=== PATIENT | female | born 2000 | race Caucasian/White ===

== ENCOUNTER → 2022-01-26 15:50 | Outpatient (CLI) | payer BC, SELFPAY ==
--- NOTE | ~2022-01-26 | US_ITS ---
EXAMINATION: US transvaginal DATE: 01/26/2022 16:25 INDICATION: Dysmenorrhea Comparison:No prior studies for comparison. TECHNIQUE: Multiple endovaginal sonographic images of the pelvis performed. FINDINGS: The uterus measures 6.4 x 3.3 x 3.9 cm. The endometrial complex measures 5 mm. The right ovary measures 3.6 x 2.3 x 3 cm and the left ovary measures 2.1 x 2 x 2.2 cm. There are sm all follicles in each ovary. Normal doppler signal in both ovaries. There is no free fluid in the pelvis. There are no abnormal masses seen on either side. IMPRESSION: 1. Normal pelvic ultrasound. Reviewed, dictated and finalized at location A.
== END ==
PROVIDERS: PCP Internal Medicine Endocrinology, Diabetes & Metabolism; Visit Provider Internal Medicine Endocrinology, Diabetes & Metabolism
DX: N94.6 Dysmenorrhea, unspecified (principal)
CPT/HCPCS: 76830

== ENCOUNTER 2022-05-05 05:52 | Emergency (ER) | payer BC, SELFPAY ==
[2022-05-05] VITALS (21 sets, daily range): BP systolic 102–127; BP diastolic 66–84; PULSE 61–89; RESP 14–18; TEMP 36.5; O2SAT 90–100
--- NOTE | ~2022-05-05 | CT_ITS ---
EXAMINATION: CT abdomen pelvis w con DATE: 05/05/2022 07:21 INDICATION: Abdominal pain TECHNIQUE: Computed tomography (CT) of the abdomen and pelvis was performed without intravenous contr ast. Automated exposure control and iterative reconstruction technique were employed. The dose-length product was 231.10 mGy-cm. COMPARISON: None FINDINGS: Lung bases are clear. Visualized inferior heart is unremarkable. No pericardial or pleural effusion. Liver, gallbladder, spleen, pancreas, bilateral adrenal glands and kidneys are normal. Bladder and an teverted uterus are normal. 1.5 cm right adnexal cyst/follicle. Moderate to large amount of stool sca ttered throughout the colon. No dilated bowel to suggest obstruction. The appendix is not definitivel y identified. No pericecal inflammatory stranding to suggest acute appendicitis. Minimal likely physi ologic free fluid in the deep pelvis. No abscess or free intraperitoneal gas. No pathologically enlar ged abdominal or pelvic lymphadenopathy. Bones are unremarkable. IMPRESSION: 1. Small amount of likely physiologic free fluid in the pelvis. No acute intra-abdominal/pelvic proce ss. Reviewed, dictated and finalized at location A. IMPRESSION: 1. Small amount of likely physiologic free fluid in the pelvis. No acute intra- abdominal/pelvic process.
--- NOTE | 2022-05-05 06:31 | ED.ABDPAIN ---
HPI - Abdominal Pain General Chief Complaint: Abdominal Pain Stated Complaint: abd pain Time Seen by Provider: 05/05/22 06:10 Source: RN notes reviewed History of Present Illness HPI narrative: Patient presents emergency department from home for abdominal pain. Patient states that pain is located in the epigastric region and is described as aching in nature states that it began approximately 8 hours ago she denies any fevers or chills nausea vomiting diarrhea chest pain shortness of breath or any other symptoms. States she took famotidine at home with minimal relief. She states she has had similar episodes of pain before in the past that she usually got shortly after her menstrual cycle that would happen approximately once a month but states she has not had that pain for a while Related Data Home Medications Medication Instructions Recorded Confirmed buspirone 05/05/22 famotidine 05/05/22 Allergies Allergy/AdvReac Type Severity Reaction Status Date / Time No Known Allergies Allergy Verified 05/05/22 06:00 Review of Systems Review of Systems: Gen.: Denies fevers or chills ENT: Denies congestion Respiratory: Denies shortness of breath or cough CV: Denies chest pain or palpitations GI: see HPI denies burning, urgency, frequency or hematuria Musculoskeletal: Denies back pain or muscle pain Neuro: Denies numbness, tingling, weakness or focal weakness Skin: Denies rash Except as documented, all other systems reviewed and negative PMFSH Past Medical History Medical History (Updated 05/05/22 @ 06:33 by Jose Maldonado DO) Patient denies significant medical history Social History Social History (Updated 05/05/22 @ 06:32 by Jose Maldonado DO) Smoking status: Never smoker Exam Narrative: APPEARANCE: No acute distress, nontoxic, resting in bed HEENT: Normocephalic, atraumatic, OMM RESPIRATORY: No respiratory distress, clear to auscultation bilaterally with no rhonchi wheezing or rales CARDIOVASCULAR: RRR s murmur ABDOMINAL: Soft nondistended tender palpation in epigastric and left upper quadrant no tenderness right upper quadrant, right lower quadrant and left lower quadrant no rebound or guarding MUSCULOSKELETAl: Moves all extremities. No clubbing, cyanosis or edema. NEURO: Awake and alert. Following commands, speech normal, no focal deficits SKIN:: Warm, dry. Normal Color PSYCHIATRIC: Normal affect/mood Course Vital Signs Vital signs: Vital Signs Temperature 97.7 F 05/05/22 05:56 Pulse Rate 89 05/05/22 05:56 Respiratory Rate 18 05/05/22 05:56 Blood Pressure 127/84 05/05/22 05:56 Pulse Oximetry 100 05/05/22 05:56 Oxygen Delivery Room Air 05/05/22 05:56 Temperature 97.7 F 05/05/22 05:56 Pulse Rate 61 05/05/22 06:09 Respiratory Rate 16 05/05/22 06:09 Blood Pressure 114/68 05/05/22 06:09 Pulse Oximetry 100 05/05/22 06:09 Oxygen Delivery Room Air 05/05/22 06:09 MDM - Abdominal Pain Lab Data Result diagrams: 05/05/22 06:13 05/05/22 06:13 Labs: Lab Results 05/05/22 05/05/22 05/05/22 Range/Units 06:13 06:13 06:26 WBC Pending RBC Pending Hgb Pending Hct Pending MCV Pending MCH Pending MCHC Pending RDW Pending Plt Count Pending MPV Pending Immature Gran % (Auto) Pending Neut % (Auto) Pending Lymph % (Auto) Pending Gilchrist % (Auto) Pending Eos % (Auto) Pending Baso % (Auto) Pending Lymph # (Auto) Pending Gilchrist # (Auto) Pending Eos # (Auto) Pending Baso # (Auto) Pending Abs Immat Gran (auto) Pending Absolute Neuts (auto) Pending Absolute Nucleated RBC Pending Nucleated RBC % Pending Sodium Pending Potassium Pending Chloride Pending Carbon Dioxide Pending Anion Gap Pending BUN Pending Creatinine Pending Estim Creat Clear Calc Pending Estimat
[2022-05-05 06:34] LABS: Basophils Percent Auto 0.4 % (0.2-1.2); Hematocrit 39.3 % (37.0-47.0); Hemoglobin 12.8 g/dL (12.0-15.0); Immature Granulocyte Absolute 0.01 K/mm3 (0.00-0.031); Immature Granulocyte Percent A 0.4 % (0-0.5); Immature Platelet Fraction Pct 3.8 % (0.9-11.2); Lymphocytes Absolute Auto 1.14 K/mm3 (0.9-3.2); Mean Corpuscular HGB Conc 32.6 g/dl (32-36); Mean Corpuscular Hemoglobin 28.3 pg (26-34); Mean Corpuscular Volume 86.8 fl (80-100); Mean Platelet Volume 10.2 fl (7.4-10.4); Monocytes Absolute Auto 0.3 K/mm3 (0.1-0.6); Monocytes Percent Auto 10.9 % (2.6-8.5); Neutrophils Absolute Auto 1.4 K/mm3 (1.3-6.7); Neutrophils Percent Auto 48.3 % (45.5-73.1); Platelet Count Result 116 k/mm3 (150-375); Red Blood Count 4.53 M/mm3 (4.2-5.4); Red Cell Distribution Width 13.2 % (11.5-14.5); White Blood Count 2.9 K/mm3 (4.5-10.0)
[2022-05-05 06:42] LABS: Appearance Urine Clear (Clear); Bilirubin Urine Negative (Negative); Blood Urine Negative (Negative); Color Urine Yellow (Yellow); Glucose Urine UA Negative (Negative); Ketones Urine Trace mg/dL (Negative); Leukocyte Esterase Ur Negative LEU/UL (Negative); Nitrate Urine Negative (Negative); Protein Urine Negative (Negative); Specific Grav Ur 1.015 (1.001-1.035); Urobilinogen Urine 0.2 mg/dL (<2.0); pH Urine 6.5 (5.0-9.0)
[2022-05-05 06:42] LABS: Alanine Aminotransferase 25 U/L (6-35); Albumin Level 4.4 g/dL (3.5-5.1); Alkaline Phosphatase 39 U/L (38-126); Anion Gap 11 mmol/L (8-16); Aspartate Amino Transferase 47 U/L (14-36); Bilirubin,Total 0.4 mg/dL (0.2-1.3); Blood Urea Nitrogen 12 mg/dL (7-17); Calcium 8.9 mg/dL (8.4-10.2); Carbon Dioxide 27 mmol/L (22-30); Chloride 101 mmol/L (98-107); Estimated CRCL calculation 109 ml/min; Estimated Glomerular Filt Rate > 60; Glucose 95 mg/dL (65-110); Lipase 182 U/L (23-300); Potassium 3.9 mmol/L (3.4-5.0); Sodium 139 mmol/L (137-145)
[2022-05-05 06:46] LABS: Add Urine Microscopic? YES; Bacteria Urine Trace /hpf; Mucus Urine Rare /lpf; Squamous Epithelial Cell Urine Few /hpf (Few); WBC Urine 0-3 /hpf
--- NOTE | 2022-05-05 07:11 | PC.NURSE ---
Received report from CUAUHTEMOC Wright
== END 2022-05-05 09:34 | disposition home or self-care (01) ==
PROVIDERS: Emergency Provider Emergency Medicine
DX: R10.13 Epigastric pain (principal)
CPT/HCPCS: 36415; 74177; 80053; 81001; 81025; 83690; 85025; 85055; 99284; A9270; Q9967